=== PATIENT | male | born 2000 | race Caucasian/White ===

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

== ENCOUNTER 2018-12-19 12:41 | Emergency (ER) | payer MEDICAID ==
[~2018-12-19] VITALS: Ht 170.2 cm; Wt 131.5 kg
[2018-12-19 12:50] VITALS: Ht 170.2 cm; Wt 131.5 kg
[2018-12-19 14:40] VITALS: BP 135/75
== END 2018-12-19 14:40 | disposition home or self-care (01) ==
LOC: ED 12:41
DX: R07.89 Other chest pain (principal)